=== PATIENT | male | born 1960 | race Caucasian/White ===

== ENCOUNTER 2024-08-01 02:57 | Emergency (ER) | payer MEDICARE, OTHER ==
--- NOTE | 2024-08-01 03:11 | ERPHSYRPT ---
- History of Present Illness Time Seen by Provider: 08/01/24 03:05 Source: patient, family Exam Limitations: no limitations Physician History: Pt had onset of back pain for a number of years and has increased pain in both feet now bringing him in tonight. pt states has had blockages in heart but denies stents but has pacer in place. He denies chest pain or sobreath , but we are checking the ekg bnp and trop due to the leg swelling and hx No recent trauma . No bowel or bladder symptoms. Chest clear Ht reg without M. Abd soft nontender without peritoneal signs. bilateral legs erythematous with edema. nurse has all 4 pulses good DP and PT bilateral feet. and I have good cap refill, but there is diffuse erythema both feet. He was taking elliquis but stopped - pt does not know why he was on it. midline spine nontender paraspinous muscle spasm. sensory and motor intact distally. ref symmetrical. Discussed with pt and available family risks and benefits of testing/Tx including CBC, CMP, EKG, Trop, BNP, UA, pain med toradol and dilaudid , benadryl, zofran, , CT abd, legs and feet, ESR, and they wish to proceed so these are ordered. Results discussed with pt and available family. Timing/Duration: week(s), intermittent, worse Method of Injury: prior injury Quality: burning, dull Back Pain Location: lumbar spine Back Pain Radiation: feet Severity of Pain-Max: moderate Severity of Pain-Current: moderate Modifying Factors: Improves With: immobilization, movement Associated Symptoms: denies symptoms Previous symptoms: same symptoms as today Allergies/Adverse Reactions: ibuprofen Allergy (Verified 08/01/24 03:21) Stomach Pain Home Medications: Acetaminophen 500 mg [Tylenol Extra Strength 500 mg] 500 mg PO Q6-8HPRN PRN 08/01/24 [History] Albuterol Sulfate [Proair Respiclick] 2 puffs IH Q6HPRN PRN 08/01/24 [History] Alendronate Sodium 70 mg [Fosamax 70 MG] 70 mg PO WEEKLY 08/01/24 [History] Amlodipine Besylate 5 mg [Norvasc 5 mg] 5 mg PO DAILY 08/01/24 [History] Atorvastatin Calcium 40 mg PO HS 08/01/24 [History] Baclofen 10 mg [Lioresal 10 mg] 20 mg PO TID 08/01/24 [History] Blood Sugar Diagnostic [True Metrix Glucose Test Strip] 1 applic DAILY 08/01/24 [History] Calcium/D3/Mag Ox/Market Risk Analyst/Rajiv/Zn [Caltrate 618-[id number]-Vmcnbjix Tab] 1 tab PO BID 08/01/24 [History] Clotrimazole/Betamethasone Dip [Clotrimazole-Betamethasone Lot] 30 ml TP DAILY 08/01/24 [History] Cyanocobalamin 100 Mcg [Vitamin B-12 100 Mcg] 100 mcg PO DAILY 08/01/24 [History] Empagliflozin [Jardiance] 10 mg PO DAILY 08/01/24 [History] Ferrous Sulfate 325 mg [Feosol 325 mg] 325 mg PO DAILY 08/01/24 [History] Fluticasone Furoate [Arnuity Ellipta] 1 spray IH DAILY PRN PRN 08/01/24 [History] Gabapentin 300 mg PO TID 08/01/24 [History] Hydrocodone/Acetaminophen [[place] 10-325 mg] 1 tab PO Q6HPRN PRN 08/01/24 [History] Lancets 1 applic DAILY 08/01/24 [History] Latanoprost/Pf [Iyuzeh 0.005% Eye Drop] 1 each OP HS 08/01/24 [History] Losartan Potassium 100 mg PO DAILY 08/01/24 [History] Miconazole Nitrate/Tolnaftate [Miconatate 2%-1% Kit] 1 applic TOP DAILY 08/01/24 [History] Pantoprazole 20 mg [Protonix 20MG Tablet] 20 mg PO BID 08/01/24 [History] Potassium Chloride 20 meq PO DAILY 08/01/24 [History] Timolol Maleate 0.5% Eye [Timoptic 0.5% 5 ml Ophthalmic] 1 drop OP HS 08/01/24 [History] Torsemide 20 mg [Demadex 20 mg] 20 mg PO UD 08/01/24 [History] - Review of Systems Constitutional: No Fever, No Chills Eyes: No Symptoms Ears, Nose, & Throat: No Symptoms Respiratory: No Cough, No Dyspnea Cardiac: No Chest Pain, No Edema, No Syncope Abdominal/Gastrointestinal: No Abdominal Pain, No Nausea, No Vomiting, No Mary rrhea Genitourinary Symptoms: No Dysuria Musculoskeletal: Back Pain, No Neck Pain Skin: No Symptoms, No Rash Neurological: No Dizziness, No Focal Weakness, No Sensory Changes Psychological: No Symptoms Endocrine: No Symptoms Hematologic/Lymphatic: No Symptoms Immunological/Allergic: No Symptoms All Other Systems: Reviewed and Negative - Past Medical History Pertinent Past Medical History: Yes Cardiac History: Coronary Artery Disease, Other (pacer) Endocrine Medical History: Diabetes Type II Musculoskeletal History: Degenerative Disk Disease, Fractures, Osteoarthritis - Nursing Vital Signs Nursing Vital Signs: Initial Vital Signs Temperature 97.5 F 08/01/24 02:59 Pulse Rate 84 08/01/24 02:59 Respiratory Rate 20 08/01/24 02:59 Blood Pressure 164/114 08/01/24 02:59 Pain Scale Pain Intensity 0 - Physical Exam General Appearance: no apparent distress, alert Eye Exam: PERRL/EOMI, eyes nml inspection Neck Exam: normal inspection, non-tender, supple, full range of motion, No meningismus, No midline tenderness Respiratory Exam: normal breath sounds, lungs clear, No respiratory distress Cardiovascular Exam: regular rate/rhythm, normal heart sounds Gastrointestinal Exam: soft, No tenderness, No mass Rectal Exam: deferred Extremity Exam: normal inspection, normal range of motion, No calf tenderness, No pedal edema Peripheral Pulses: carotid (R): 2+, carotid (L): 2+, femoral (R): 2+, femoral (L): 2+, dorsalis-pedis (R): 2+, dorsalis-pedis (L): 2+ Neurologic Exam: alert, oriented x 3, cooperative, 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 ) - Radiology Ultrasound Exam Venous Lower Extremity Ultrasound: negative (negative for DVTs bilaterally) Ordered Tests: Active Orders 24 hr Category Date Time Status EKG-ER Only STAT Care 08/01/24 03:13 Active IV Insertion STAT Care 08/01/24 03:13 Active ABDOMEN AND PELVIS W/0 CONTRAS [CT] Stat Exams 08/01/24 03:14 Completed LOWER EXTREMITY WO CONTRAST [CT] Stat Exams 08/01/24 03:21 Completed LOWER EXTREMITY WO CONTRAST [CT] Stat Exams 08/01/24 03:27 Completed LOWER EXTREMITY WO CONTRAST [CT] Stat Exams 08/01/24 03:40 Completed LOWER EXTREMITY WO CONTRAST [CT] Stat Exams 08/01/24 03:42 Completed VENOUS BILATERAL EXTREMITY [US] Stat Exams 08/01/24 03:16 Taken BNPII [NT PRO BNPII] Stat Lab 08/01/24 04:03 Completed CBC W DIFF Stat Lab 08/01/24 03:50 Completed CMP Stat Lab 08/01/24 03:50 Completed ESR [Erythrocyte Sedimentation Rate] Stat Lab 08/01/24 03:50 Completed LIPASE Stat Lab 08/01/24 03:50 Completed Lactic Acid Stat Lab 08/01/24 03:40 Completed TROPONIN Q4H Lab 08/01/24 03:50 Completed TROPONIN Q4H Lab 08/01/24 07:15 Ordered TROPONIN Q4H Lab 08/01/24 11:15 Ordered UA W/RFX UR CULTURE Stat Lab 08/01/24 03:14 Ordered Medication Summary Discontinued Medications Generic Name Dose Route Start Last Admin Trade Name Freq PRN Reason Stop Dose Admin Diphenhydramine HCl 25 mg 08/01/24 03:13 08/01/24 03:32 Diphenhydramine Hcl 50 Mg/Ml Vial IV 08/01/24 03:14 25 mg STAT ONE Administration Diphenhydramine HCl Confirm 08/01/24 03:30 Diphenhydramine Hcl 50 Mg/Ml Vial Administered 08/01/24 03:31 Dose 50 mg .ROUTE .STK-MED ONE Hydromorphone HCl 1 mg 08/01/24 03:13 08/01/24 03:33 Hydromorphone 1 Mg/1ml Inj IV 08/01/24 03:14 1 mg STAT ONE Administration Hydromorphone HCl Confirm 08/01/24 03:30 Hydromorphone 1 Mg/1ml Inj Administered 08/01/24 03:31 Dose 1 mg .ROUTE .STK-MED ONE Hydromorphone HCl 2 mg 08/01/24 04:29 08/01/24 04:37 Hydromorphone 1 Mg/1ml Inj IV 08/01/24 04:30 1 mg STAT ONE Administration Hydromorphone HCl Confirm 08/01/24 04:36 Hydromorphone 1 Mg/1ml Inj Administered 08/01/24 04:37 Dose 2 mg .ROUTE .STK-MED ONE Ceftriaxone Sodium 1 gm in 100 mls @ 200 mls/hr 08/01/24 03:18 08/01/24 04:05 Rocephin 1 Gm / 100 Ml Nacl IV 08/01/24 03:47 Infused STAT ONE Infusion Ceftriaxone Sodium Confirm 08/01/24 03:30 Rocephin 1 Gm / 100 Ml Nacl Administered 08/01/24 03:31 Dose 1 gm in 100 mls @ ud IV .STK-MED ONE Ketorolac Tromethamine 30 mg 08/01/24 03:13 08/01/24 03:33 Ketorolac Tromethamine 30 Mg/Ml Inj IV 08/01/24 03:14 30 mg STAT ONE Administration Ketorolac Tromethamine Confirm 08/01/24 03:30 Ketorolac Tromethamine 30 Mg/Ml Inj Administered 08/01/24 03:31 Dose 30 mg .ROUTE .STK-MED ONE Ondansetron HCl 4 mg 08/01/24 03:13 08/01/24 03:32 Ondansetron Hcl 4 Mg/2 Ml Vial IV 08/01/24 03:14 4 mg STAT ONE Administration Ondansetron HCl Confirm 08/01/24 03:30 Ondansetron Hcl 4 Mg/2 Ml Vial Administered 08/01/24 03:31 Dose 4 mg .ROUTE .STK-MED ONE Lab/Rad Data: Laboratory Result Diagrams 08/01/24 03:50 08/01/24 03:50 Laboratory Results 08/01/24 08/01/24 08/01/24 Range/Units 04:03 03:50 03:50 WBC (4.23-9.07) x10^3/uL RBC (4.63-6.08) x10^6/uL Hgb (13.7-17.5) g/dL Hct (40.1-51.0) % MCV (79.0-92.2) fL MCH (25.7-32.2) pg MCHC (32.3-36.5) g/dL RDW (11.6-14.4) % Plt Count (163-337) x10^3/uL MPV (9.4-12.4) fL Gran % (34.0-67.9) % Immature Gran % (Auto) (0.001-0.429) % Nucleat RBC Rel Count (0.00-0.2) % Eos # (Auto) (0.04-0.54) x10^3/uL Immature Gran # (Auto) (0.001-0.031) x10^3u/L Absolute Lymphs (auto) (1.32-3.57) x10^3/uL Absolute Monos (auto) (0.30-0.82) x10^3/uL Absolute Nucleated RBC (0.00-0.012) x10^3u/L Lymphocytes % (21.8-53.1) % Monocytes % (5.3-12.2) % Eosinophils % (0.8-7.0) % Basophils % (0.2-1.2) % Absolute Granulocytes (1.78-5.38) x10^3/uL Basophils # (0.01-0.08) x10^3/uL ESR 19 H (0-15) mm/hr Sodium (135-145) mmol/L Potassium (3.5-5.1) mmol/L Chloride (98-107) mmol/L Carbon Dioxide (22-30) mmol/L Anion Gap (5-15) MEQ/L BUN (9-20) mg/dL Creatinine (0.66-1.25) mg/dL Estimated GFR ML/MIN Glucose (74-106) mg/dL Lactic Acid (0.4-2.0) Calcium (8.4-10.2) mg/dL Total Bilirubin (0.2-1.3) mg/dL AST (17-59) U/L ALT (0-50) U/L Alkaline Phosphatase (38-126) U/L Troponin I (0.000-0.033) ng/mL NT-Pro-B Natriuret Pep 350 (<300) pg/mL Serum Total Protein (6.3-8.2) g/dL Albumin (3.5-5.0) g/dL Lipase (23-300) U/L Influenza Type A Ag NEGATIVE (NEGATIVE) Influenza Type B Ag NEGATIVE (NEGATIVE) RSV (PCR) NEGATIVE (NEGATIVE) SARS-CoV-2 (PCR) NEGATIVE (NEGATIVE) 08/01/24 08/01/24 08/01/24 Range/Units 03:50 03:50 03:50 WBC 7.3 (4.23-9.07) x10^3/uL RBC 5.11 (4.63-6.08) x10^6/uL Hgb 14.7 (13.7-17.5) g/dL Hct 45.7 (40.1-51.0) % MCV 89.4 (79.0-92.2) fL MCH 28.8 (25.7-32.2) pg MCHC 32.2 L (32.3-36.5) g/dL RDW 14.4 (11.6-14.4) % Plt Count 332 (163-337) x10^3/uL MPV 9.3 L (9.4-12.4) fL Gran % 61.0 (34.0-67.9) % Immature Gran % (Auto) 0.7 H (0.001-0.429) % Nucleat RBC Rel Count 0.0 (0.00-0.2) % Eos # (Auto) 0.16 (0.04-0.54) x10^3/uL Immature Gran # (Auto) 0.05 H (0.001-0.031) x10^3u/L Absolute Lymphs (auto) 1.91 (1.32-3.57) x10^3/uL Absolute Monos (auto) 0.61 (0.30-0.82) x10^3/uL Absolute Nucleated RBC 0.00 (0.00-0.012) x10^3u/L Lymphocytes % 26.2 (21.8-53.1) % Monocytes % 8.4 (5.3-12.2) % Eosinophils % 2.2 (0.8-7.0) % Basophils % 1.5 H (0.2-1.2) % Absolute Granulocytes 4.46 (1.78-5.38) x10^3/uL Basophils # 0.11 H (0.01-0.08) x10^3/uL ESR (0-15) mm/hr Sodium 137 (135-145) mmol/L Potassium 4.3 (3.5-5.1) mmol/L Chloride 105 (98-107) mmol/L Carbon Dioxide 26 (22-30) mmol/L Anion Gap 10.3 (5-15) MEQ/L BUN 12 (9-20) mg/dL Creatinine 0.55 L (0.66-1.25) mg/dL Estimated GFR 110.0 ML/MIN Glucose 92 (74-106) mg/dL Lactic Acid (0.4-2.0) Calcium 9.8 (8.4-10.2) mg/dL Total Bilirubin 0.60 (0.2-1.3) mg/dL AST 23 (17-59) U/L ALT 18 (0-50) U/L Alkaline Phosphatase 90 (38-126) U/L Troponin I < 0.012 (0.000-0.033) ng/mL NT-Pro-B Natriuret Pep (<300) pg/mL Serum Total Protein 6.6 (6.3-8.2) g/dL Albumin 4.1 (3.5-5.0) g/dL Lipase 24 (23-300) U/L Influenza Type A Ag (NEGATIVE) Influenza Type B Ag (NEGATIVE) RSV (PCR) (NEGATIVE) SARS-CoV-2 (PCR) (NEGATIVE) 08/01/24 Range/Units 03:40 WBC (4.23-9.07) x10^3/uL RBC (4.63-6.08) x10^6/uL Hgb (13.7-17.5) g/dL Hct (40.1-51.0) % MCV (79.0-92.2) fL MCH (25.7-32.2) pg MCHC (32.3-36.5) g/dL RDW (11.6-14.4) % Plt Count (163-337) x10^3/uL MPV (9.4-12.4) fL Gran % (34.0-67.9) % Immature Gran % (Auto) (0.001-0.429) % Nucleat RBC Rel Count (0.00-0.2) % Eos # (Auto) (0.04-0.54) x10^3/uL Immature Gran # (Auto) (0.001-0.031) x10^3u/L Absolute Lymphs (auto) (1.32-3.57) x10^3/uL Absolute Monos (auto) (0.30-0.82) x10^3/uL Absolute Nucleated RBC (0.00-0.012) x10^3u/L Lymphocytes % (21.8-53.1) % Monocytes % (5.3-12.2) % Eosinophils % (0.8-7.0) % Basophils % (0.2-1.2) % Absolute Granulocytes (1.78-5.38) x10^3/uL Basophils # (0.01-0.08) x10^3/uL ESR (0-15) mm/hr Sodium (135-145) mmol/L Potassium (3.5-5.1) mmol/L Chloride (98-107) mmol/L Carbon Dioxide (22-30) mmol/L Anion Gap (5-15) MEQ/L BUN (9-20) mg/dL Creatinine (0.66-1.25) mg/dL Estimated GFR ML/MIN Glucose (74-106) mg/dL Lactic Acid 1.1 (0.4-2.0) Calcium (8.4-10.2) mg/dL Total Bilirubin (0.2-1.3) mg/dL AST (17-59) U/L ALT (0-50) U/L Alkaline Phosphatase (38-126) U/L Troponin I (0.000-0.033) ng/mL NT-Pro-B Natriuret Pep (<300) pg/mL Serum Total Protein (6.3-8.2) g/dL Albumin (3.5-5.0) g/dL Lipase (23-300) U/L Influenza Type A Ag (NEGATIVE) Influenza Type B Ag (NEGATIVE) RSV (PCR) (NEGATIVE) SARS-CoV-2 (PCR) (NEGATIVE) - Progress Progress: improved, re-examined Progress Note: 08/01/24 04:29 pain only down from 9 to 7 so will give more pain meds. 08/01/24 05:17 pain got down to 6 and pt went to sleep. 08/01/24 06:58 pt is advised that there still could be undetected pathology evolving including cardiac, vascular infectious , neuro or other, but he prefers DC with outpt f/u rather than admission and furhter w/u in house and he has the capacity to make this choice. Counseled pt/family regarding: lab results, diagnosis, need for follow-up, rad results Medical Desision Making - Independent Historian Additional History obtained from: EMS - Discussion of managment Reviewed:: Test results, Need for additional workup Agreed on:: Treatment plan, need for follow-up - Diagnostic Testing Diagnostic test were ordered, analyzed, and reviewed by me: Yes Radiological Interpretation: Teleradiologist Report - Risk of complications The pt has a mod risk of morbidity or mortality based on: Need for prescription drug management The pt has a high risk of morbidity or mortality based on: Decision regarding hospitilization or escalation of hosp level of care - Departure Departure Disposition: Home Clinical Impression: Bilateral lower leg cellulitis, lumbar spine DDD, Adrenal adenoma Condition: Good Critical Care Time: No Referrals: Provider,Unknown [Primary Care Provider] - Follow up/PCP as directed Instructions: Low Back Pain (DC), Cellulitis (skin infection) in adults - Discharge instructions Additional Instructions: followup your blood pressure Back, and adrenal adenomas with your DrRoels as we discussed you have some infection in your legs and we are giving antibi otics at your pharmacy for this but it needs followup with your Drs. and so does your back since there could be additional conditions not detected yet but developing. Return meantime if not improving, increased pain, chest pain, shortness of breath, dizziness, increased swelling, increased redness or drainage, or any other symptoms of concern. Prescriptions: Smz/Tmp Ds Tablet [Bactrim Ds Tablet] 1 tab PO Q12H #20 tablet Cephalexin Mh 500 mg [Keflex 500 mg] 500 mg PO TID 7 Days #30 cap
[2024-08-01 03:20] VITALS: TEMP 97.5
[2024-08-01] MEDS ORDERED: ROCEPHIN 1 GM / 100 ML NaCl 1 GM/100 ML IVPB IV ONE (03:30)
[2024-08-01] MEDS ORDERED: TORAdol 30 mg Injection ONE (03:30)
[2024-08-01] MEDS ORDERED: Hydromorphone 1 mg/ml Injection ONE ×2 (03:30→04:36)
[2024-08-01] MEDS ORDERED: Zofran 4 MG/2 ML VIAL ONE (03:30)
[2024-08-01] MEDS ORDERED: BENADRYL 50 MG/ML ONE (03:30)
[2024-08-01] MEDS: BENADRYL 50 MG/ML IV ONE (03:32)
[2024-08-01] MEDS: Zofran 4 MG/2 ML VIAL IV ONE (03:32)
[2024-08-01] MEDS: Hydromorphone 1 mg/ml Injection IV ONE ×2 (03:33→04:37)
[2024-08-01] MEDS: TORAdol 30 mg Injection IV ONE (03:33)
[2024-08-01] MEDS: ROCEPHIN 1 GM / 100 ML NaCl 1 GM/100 ML IVPB IV ONE (03:34)
[2024-08-01 03:55] LABS: Absolute Neutrophil Ct (ANC) 4.46 x10^3/uL (1.78-5.38); BASOPHIL % 1.5 % (0.2-1.2); Basophil (Absolute #) 0.11 x10^3/uL (0.01-0.08); Eosinophil % 2.2 % (0.8-7.0); Eosinophil (Absolute #) 0.16 x10^3/uL (0.04-0.54); Hematocrit 45.7 % (40.1-51.0); Hemoglobin 14.7 g/dL (13.7-17.5); IMMATURE GRAN # 0.05 x10^3u/L (0.001-0.031); IMMATURE GRAN % 0.7 % (0.001-0.429); Lymphocyte (Absolute #) 1.91 x10^3/uL (1.32-3.57); Lymphocytes % 26.2 % (21.8-53.1); Mean Cell Volume 89.4 fL (79.0-92.2); Mean Corpuscular Hemoglobin 28.8 pg (25.7-32.2); Mean Corpuscular Hgb Concent. 32.2 g/dL (32.3-36.5); Mean Platelet Volume 9.3 fL (9.4-12.4); Monocyte (Absolute #) 0.61 x10^3/uL (0.30-0.82); Monocytes % 8.4 % (5.3-12.2); Platelet Count 332 x10^3/uL (163-337); Red Blood Count 5.11 x10^6/uL (4.63-6.08); Red Cell Distribution Width 14.4 % (11.6-14.4); White Blood Count 7.3 x10^3/uL (4.23-9.07)
[2024-08-01 04:07] LABS: ALBUMIN 4.1 g/dL (3.5-5.0); ANION GAP 10.3 MEQ/L (5-15); BILIRUBIN,TOTAL 0.6 mg/dL (0.2-1.3); Calcium 9.8 mg/dL (8.4-10.2); Creatinine 1 0.55 mg/dL (0.66-1.25); Potassium 4.3 mmol/L (3.5-5.1); Total Protein 6.6 g/dL (6.3-8.2)
[2024-08-01 04:29] LABS: INFLUENZA A NEGATIVE (NEGATIVE); INFLUENZA B NEGATIVE (NEGATIVE); RESPIRATORY SYNCTIAL VIRUS NEGATIVE (NEGATIVE); SARS-CoV-2 Xpert Express NEGATIVE (NEGATIVE)
--- NOTE | 2024-08-01 05:17 | XRAY ---
CLINICAL HISTORY: back/ abd pain COMPARISON: No prior studies are available for comparison. TECHNIQUE: Non-contrast CT of the abdomen and pelvis was performed, with the following protocol: axial images, and reconstructed coronal and sagittal images. One of the following dose reduction techniques was utilized for this exam: Automated exposure control, adjustment of the mA and/or kV according to patient size, and use of iterative reconstruction. CTDI: 22.77 mGy. DLP: 1245.79 mGY.cm. FINDINGS: Abdomen: Liver: Normal in size, shape, and density. No focal lesions, cysts, or masses were identified within the limitation of a non-contrast study. Gallbladder and Biliary System: Cholecystectomy clips. No intrahepatic biliary ductal dilatation. CBD is prominent measuring 11 mm, likely postcholecystectomy changes. Pancreas: Diffuse fatty atrophy of the pancreas is seen, more in the head and uncinate process. No pancreatic masses or calcifications were noted. Spleen: Normal in size, shape, and density. Multiple, scattered calcified nodules are seen in the spleen, likely old healed granulomas. A small accessory spleen is seen near the splenic hilum. Appendix: The appendix is normal in size without stephanie appendiceal fat stranding and without an appendicolith. No evidence of appendiceal abscess or perforation. Kidneys and Adrenal Glands: Both kidneys are normal in size, shape, and position. Bilateral a few tiny parapelvic cysts are noted. Cortical thickness is within normal limits. No renal calculi or hydronephrosis. Bilateral adrenal adenomas are seen, measuring 2.4 x 2 cm on right and 5 x 3.6 cm on the left. Abdominal Aorta and Vessels: The abdominal aorta and major branches are patent without evidence of an aneurysm or significant atherosclerosis. Pelvis: Metallic streak artifacts from right total hip replacement are obscuring the fine details of the pelvis. Within the limitation of the artifacts, urinary bladder, prostate, and seminal vesicles appear unremarkable. Peritoneal and Retroperitoneal Structures: No free fluid or abnormal fluid collections were identified within the abdomen or pelvis. No lymphadenopathy was noted. Bowel: The visualized bowel loops are normal in caliber and appearance. No evidence of bowel obstruction or wall thickening. Non-complicated colonic diverticulosis. A large sliding hernia is noted with an intercrural distance of 3 cm and herniation of gastric fundus into the posterior mediastinum with changes of bariatric surgery. Bones and Soft Tissues: Multilevel lumbar and lower thoracic spondylotic changes with scoliotic deformity having convexity towards left, partial collapsed L5, and T11 vertebral bodies with generalized osteopenia, multilevel Schmorl's nodes, degenerative intervertebral disc reduction, vacuum phenomena, and osteophyte formation. Visualized lung bases show cardiac pacemaker leads. IMPRESSION: 1. Bilateral adrenal nodules and masses likely adenomas, measuring 2.4 x 2 cm on right and 5 x 3.6 cm on the left. 2. Non-complicated colonic diverticulosis. 3. A sliding hernia with an intercrural distance of 3 cm and herniation of gastric fundus into the posterior mediastinum with changes of bariatric surgery. 4. A few bilateral, small parapelvic renal cysts. 5. No renal calculi or hydronephroureter 6. Levoscoliotic deformity with degenerative changes and partial collapsed L5, and T11 vertebral bodies as per given in history. 7. CBD is prominent measuring 11 mm, likely postcholecystectomy changes. 8. No significant acute findings. Electronically Signed by: Iliana Cruz MD. (08/01/2024 05:12:34 EST)
--- NOTE | 2024-08-01 06:04 | XRAY ---
CLINICAL HISTORY: looking for osteomyletis COMPARISON: No previous studies are available for comparison. TECHNIQUE: A CT scan of the right lower extremity was performed without the administration of intravenous contrast. Axial images were obtained, with coronal and sagittal reformatted images reviewed. One of the following dose-reduction techniques was utilized for this exam. Automated exposure control, adjustment of the mA and/or kV according to patient size, and use of iterative reconstruction. CTDI: 28.07 mGy. DLP: 1556.9 mGy.cm. FINDINGS: Bones: The bony structures are intact with no evidence of acute fracture or dislocation. There is no evidence of lytic or sclerotic lesions. Generalized osteopenia with trabeculated bone pattern Joints: Right total knee replacement surgery is seen in the metallic prosthesis in situ. No evidence of loosening or migration. Ankle joint is intact. Degenerative changes of right foot with reduced joint space, and osteophyte formation. Soft Tissues: Diffuse soft tissue swelling of the foot is seen with subcutaneous edema and mild skin thickening. No abnormal calcification, masses, or collection. Additional Findings: There is no significant periosteal reaction or signs to suggest acute osteomyelitis. Atherosclerotic vascular calcifications. Calcific tendinosis/enthesopathy of the distal Achilles tendon is seen. IMPRESSION: 1. Generalized osteopenia of right lower leg bones with trabeculated bone pattern 2. No evidence of acute fracture, dislocation 3. Right total knee replacement surgery is seen in the metallic prosthesis in situ. No evidence of loosening or migration. 4. Degenerative changes of right foot with reduced joint space, and osteophyte formation. 5. Calcific tendinosis/enthesopathy of the distal Achilles tendon is seen. 6. Diffuse soft tissue swelling of the right foot with subcutaneous edema and mild skin thickening. Findings may suggest cellulitis however further evaluation of deep veins of the leg can be recommended to rule out other causes 7. No significant periosteal reaction or signs to suggest acute osteomyelitis. Electronically Signed by: Iliana Cruz MD. (08/01/2024 05:59:44 EST)
--- NOTE | 2024-08-01 06:06 | XRAY ---
CLINICAL HISTORY: RED, SWELLING COMPARISON: No previous studies are available for comparison. TECHNIQUE: CT scan of the left foot was performed without the administration of intravenous contrast. Axial images were obtained, with coronal and sagittal reformatted images reviewed. One of the following dose reduction techniques was utilized for this exam. Automated exposure control, adjustment of the mA and/or kV according to patient size, and use of iterative reconstruction. FINDINGS: Bones: The bony structures are intact with no evidence of acute fracture or dislocation. There is no evidence of lytic or sclerotic lesions. Generalized osteopenia with trabeculated bone pattern Joints: There are degenerative changes with reduced joint spaces and bony proliferation suggestive of osteophyte formation are noted. No evidence of joint effusion, subluxation Soft Tissues: Diffuse soft tissue swelling of the foot is seen with subcutaneous edema and mild skin thickening. No abnormal calcification, masses or collection. Additional Findings: Posterior and plantar calcaneal spurs. There is no significant periosteal reaction or signs to suggest acute osteomyelitis. IMPRESSION: 1. Generalized osteopenia of left foot bones with trabeculated bone pattern 2. No evidence of acute fracture, dislocation 3. Degenerative changes of left foot joints with reduced joint spaces and bony proliferation/osteophyte formation 4. Diffuse soft tissue swelling of the foot with subcutaneous edema and mild skin thickening. Findings may suggest cellulitis however further evaluation of deep veins of the leg can be recommended to rule out other causes 5. Posterior and plantar calcaneal spurs. 6. No significant periosteal reaction or signs to suggest acute osteomyelitis. Electronically Signed by: Iliana Cruz MD. (08/01/2024 06:00:56 EST)
--- NOTE | 2024-08-01 06:08 | XRAY ---
CLINICAL HISTORY: RED, SWELLING COMPARISON: No previous studies are available for comparison. TECHNIQUE: CT scan of the [specify extremity and side, e.g., right foot was performed without the administration of intravenous contrast. Axial images were obtained, with coronal and sagittal reformatted images reviewed. One of the following dose reduction techniques was utilized for this exam. Automated exposure control, adjustment of the mA and/or kV according to patient size, and use of iterative reconstruction. FINDINGS: Bones: The bony structures are intact with no evidence of acute fracture or dislocation. There is no evidence of lytic or sclerotic lesions. Generalized osteopenia with trabeculated bone pattern Joints: Ankle joint is intact. Degenerative changes of right foot with reduced joint space, and osteophyte formation. Soft Tissues: Diffuse soft tissue swelling of the foot is seen with subcutaneous edema and mild skin thickening. No abnormal calcification, masses or collection. Additional Findings: There is no significant periosteal reaction or signs to suggest acute osteomyelitis. Atherosclerotic vascular calcifications. Calcific tendinosis/enthesopathy of the distal Achilles tendon is seen. Calcaneal spurs are seen. Calcified tendinopathy of other foot tendons. IMPRESSION: 1. Generalized osteopenia of right foot bones with trabeculated bone pattern 2. No evidence of acute fracture, dislocation 3. Degenerative changes of right foot with reduced joint space, and osteophyte formation. 4. Calcific tendinosis/enthesopathy of the distal Achilles tendon is seen. 5. Diffuse soft tissue swelling of the right foot with subcutaneous edema and mild skin thickening. Findings may suggest cellulitis however further evaluation of deep veins of the leg can be recommended to rule out other causes 6. Calcaneal spurs 7. No significant periosteal reaction or signs to suggest acute osteomyelitis. Electronically Signed by: Iliana Cruz MD. (08/01/2024 06:04:03 EST)
--- NOTE | 2024-08-01 06:50 | XRAY ---
CLINICAL HISTORY: redness looking for osteo COMPARISON: No previous studies are available for comparison. TECHNIQUE: A CT scan of the left lower extremity was performed without the administration of intravenous contrast. Axial images were obtained, with coronal and sagittal reformatted images reviewed. One of the following dose reduction techniques was utilized for this exam. Automated exposure control, adjustment of the mA and/or kV according to patient size, and use of iterative reconstruction. DLP: 1513.07 mGy-cm, CTDI: 28.07 mGy. FINDINGS: Bones: The bony structures are intact with no evidence of acute fracture or dislocation. There is no evidence of lytic or sclerotic lesions. Osteopenic bones with trabecular bone pattern. Possible proximal tibial old fracture with callus formation. Joints: Changes of left total knee replacement were seen with metallic prosthesis in place without evidence of loosening or migration. The ankle joint is intact. No joint effusion or subluxation. Degenerative changes of the foot joints with reduced joint spaces and bony proliferation/osteophyte formation. Soft Tissues: There is diffuse soft tissue swelling of the foot with subcutaneous edema and skin thickening. No mass/collection, or foreign body. Additional Findings: Calcific tendinosis/enthesopathy of the Achilles tendon. No significant periosteal reaction or signs of acute osteomyelitis. Calcaneal spurs. Few scattered soft tissue calcifications are seen in the nguyễn region. No significant periosteal reaction or CT signs of acute osteomyelitis. IMPRESSION: 1. Osteopenic bones with trabecular bone pattern. 2. Left total knee replacement with metallic prosthesis in place without evidence of loosening or migration. 3. Degenerative changes of the foot joints with reduced joint spaces and bony proliferation/osteophyte formation. 4. Diffuse soft tissue swelling of the foot with subcutaneous edema and skin thickening. The cause can be cellulitis however further evaluation with venous ultrasound can be recommended if clinically warranted to rule out other causes and to assess the deep veins. 5. Calcific tendinosis/enthesopathy of the Achilles tendon. 6. No significant periosteal reaction or CT signs of acute osteomyelitis. 7. Possible proximal tibial old fracture with callus formation. Electronically Signed by: Iliana Cruz MD. (08/01/2024 06:45:09 EST)
[2024-08-01 07:32] VITALS: BP 133/95; PULSE 66; RESP 15; O2SAT 94
--- NOTE | 2024-08-01 08:30 | XRAY ---
Indication: Bilateral erythema and swelling. Two-dimensional sonogram and color Doppler imaging major venous vessels left and right leg performed. Comparison: None No thrombus seen in the examined deep venous vessels left and right leg including greater saphenous vein. Veins demonstrate normal compressibility. Venous waveforms are normal with and without augmentation. Impression: Left and right legs negative for DVT. Comment: Preliminary report was given.
== END 2024-08-01 07:34 | disposition home or self-care (01) ==
LOC: ED 02:57
DX: L03.116 Cellulitis of left lower limb (principal); L03.115 Cellulitis of right lower limb; M51.369 Other intervertebral disc degeneration, lumbar region without mention of lumbar back pain or lower extremity pain; D35.00 Benign neoplasm of unspecified adrenal gland; M79.671 Pain in right foot; M79.672 Pain in left foot; E11.9 Type 2 diabetes mellitus without complications; Z79.84 Long term (current) use of oral hypoglycemic drugs; Z79.891 Long term (current) use of opiate analgesic; Z79.899 Other long term (current) drug therapy
CPT/HCPCS: 0241U; 36415; 73700; 74176; 80053; 83605; 83690; 83880; 84484; 85025; 85652; 93005; 93970; 96374; 96375; 99285; 99284; J0696; J1171; J1200; J1885; J2405

== ENCOUNTER 2024-08-25 14:30 | Emergency (ER) | payer MEDICARE, OTHER ==
--- NOTE | 2024-08-25 14:37 | ERPHSYRPT ---
- History of Present Illness Time Seen by Provider: 08/25/24 14:37 Source: patient Exam Limitations: no limitations Physician History: This is a morbidly obese 64-year-old white male patient who arrived by private vehicle with the complaint of low back pain. Patient has a history of chronic low back pain. He was seen in our emergency department on 08/01/2024 and had an extensive workup. Since that time, approximately 3 to 4 days ago, patient fell onto his lower back and tailbone area. He has only been taking Tylenol for the pain and this does not appear to be helping per his report. He has no urinary or bowel incontinence. Patient has a history of chronic low back pain for years. He has a history of osteoarthritis, morbid obesity, hypertension, gastroesophageal reflux disease, type 2 diabetes, degenerative disc disease, and coronary artery disease. Patient states that he was brought to the emergency department by a friend and that friend will also pick him up if/when he is discharged from the emergency department. Timing/Duration: day(s) Method of Injury: fall (3 to 4 days) Quality: aching Back Pain Location: lumbar spine, coccyx Severity of Pain-Max: moderate Severity of Pain-Current: moderate Modifying Factors: Improves With: movement Associated Symptoms: lower back pain, muscle spasms, No urinary incontinence, No loss of bowel control, No constipation, No problems urinating, No light- headedness, No dizziness, No numbness in legs/feet, No tingling in legs/feet Previous symptoms: same symptoms as today, recently seen, recently treated Allergies/Adverse Reactions: ibuprofen Allergy (Verified 08/25/24 14:40) Stomach Pain Home Medications: Acetaminophen 500 mg [Tylenol Extra Strength 500 mg] 500 mg PO Q6-8HPRN PRN 08/01/24 [History] Albuterol Sulfate [Proair Respiclick] 2 puffs IH Q6HPRN PRN 08/01/24 [History] Alendronate Sodium 70 mg [Fosamax 70 MG] 70 mg PO WEEKLY 08/01/24 [History] Amlodipine Besylate 5 mg [Norvasc 5 mg] 5 mg PO DAILY 08/01/24 [History] Atorvastatin Calcium 40 mg PO HS 08/01/24 [History] Baclofen 10 mg [Lioresal 10 mg] 20 mg PO TID 08/01/24 [History] Blood Sugar Diagnostic [True Metrix Glucose Test Strip] 1 applic DAILY 08/01/24 [History] Calcium/D3/Mag Ox/Ophthalmic Surgical Assistant/Rajiv/Zn [Caltrate 410-Y2-Yrvmyilp Tab] 1 tab PO BID 08/01/24 [History] Clotrimazole/Betamethasone Dip [Clotrimazole-Betamethasone Lot] 30 ml TP DAILY 08/01/24 [History] Cyanocobalamin 100 Mcg [Vitamin B-12 100 Mcg] 100 mcg PO DAILY 08/01/24 [History] Empagliflozin [Jardiance] 10 mg PO DAILY 08/01/24 [History] Ferrous Sulfate 325 mg [Feosol 325 mg] 325 mg PO DAILY 08/01/24 [History] Fluticasone Furoate [Arnuity Ellipta] 1 spray IH DAILY PRN PRN 08/01/24 [History] Gabapentin 300 mg PO TID 08/01/24 [History] Hydrocodone/Acetaminophen [Horton 10-325 mg] 1 tab PO Q6HPRN PRN 08/01/24 [History] Lancets 1 applic DAILY 08/01/24 [History] Latanoprost/Pf [Iyuzeh 0.005% Eye Drop] 1 each OP HS 08/01/24 [History] Losartan Potassium 100 mg PO DAILY 08/01/24 [History] Miconazole Nitrate/Tolnaftate [Miconatate 2%-1% Kit] 1 applic TOP DAILY 08/01/24 [History] Pantoprazole 20 mg [Protonix 20MG Tablet] 20 mg PO BID 08/01/24 [History] Potassium Chloride 20 meq PO DAILY 08/01/24 [History] Timolol Maleate 0.5% Eye [Timoptic 0.5% 5 ml Ophthalmic] 1 drop OP HS 08/01/24 [History] Torsemide 20 mg [Demadex 20 mg] 20 mg PO UD 08/01/24 [History] Hx Tetanus, Diphtheria Vaccination/Date Given: No Hx Influenza Vaccination/Date Given: Yes Hx Pneumococcal Vaccination/Date Given: No Travel Risk - International Travel Have you traveled outside of the country in past 3 weeks: No - Emerging Infectious Disease Are you exhibiting symptoms associated with any current EIDs: No - Review of Systems Constitutional: No Symptoms Eyes: No Symptoms Ears, Nose, & Throat: No Symptoms Respiratory: No Symptoms Cardiac: No Symptoms Abdominal/Gastrointestinal: No Symptoms Genitourinary Symptoms: No Symptoms Musculoskeletal: Back Pain (Lumbar region), Fall Skin: No Symptoms Neurological: No Symptoms Psychological: No Symptoms Endocrine: No Symptoms Hematologic/Lymphatic: No Symptoms Immunological/Allergic: No Symptoms All Other Systems: Reviewed and Negative - Past Medical History Pertinent Past Medical History: Yes Cardiac History: Coronary Artery Disease, Other (pacer) Endocrine Medical History: Diabetes Type II Musculoskeletal History: Degenerative Disk Disease, Fractures, Osteoarthritis - Past Surgical History Past Surgical History: Yes Cardiac: Pacemaker Gastrointestinal: Cholecystectomy, Hemorrhoidectomy Musculoskeletal: Joint Replacement Other Surgical History: gastric bypass, bilat. knee replacement, bone spur, carpal tunnel repair on left hand, - Social History Smoking Status: Never smoker Exposure to second hand smoke: No Drug Use: marijuana - Social Determinants of Health Will the patient participate in the screening: Yes Do you worry about a steady place to live?: No In the past 12 months,have you had to go without utilities?: No Transportation Issues: No Has anyone in your support network made you feel unsafe?: No Have you or anyone in your house had to go w/o enough food: No - Nursing Vital Signs Nursing Vital Signs: Initial Vital Signs Blood Pressure 113/72 08/25/24 14:38 O2 Sat by Pulse Oximetry 95 08/25/24 14:38 Pain Scale Pain Intensity 8 - Physical Exam General Appearance: no apparent distress, alert, anxiety, obese Eye Exam: PERRL/EOMI, eyes nml inspection Ears, Nose, Throat Exam: normal ENT inspection, moist mucous membranes Neck Exam: normal inspection, non-tender, supple, full range of motion Respiratory Exam: respiratory distress, No chest tenderness, No airway intact Gastrointestinal Exam: No tenderness Rectal Exam: not done Back Exam: normal inspection, decreased range of motion, muscle spasm, No CVA tenderness, No vertebral tenderness (No vertebral tenderness to palpation), No point tenderness (No point tenderness to palpation) Extremity Exam: normal inspection, normal range of motion, pelvis stable, other Neurologic Exam: alert, oriented x 3, cooperative, boat wrapper II-XII nml as tested, normal mood/affect, sensation nml Skin Exam: normal color, warm, dry Lymphatic Exam: No adenopathy SpO2 Interpretation: normal O2 Delivery: Room Air - Course Nursing assessment & vital signs reviewed: Yes Ordered Tests: Active Orders 24 hr Category Date Time Status LUMBAR LIMITED (2 OR 3 VIEWS) Stat Exams 08/25/24 14:53 Completed SACRUM AND COCCYX Stat Exams 08/25/24 14:54 Completed - Progress Progress: improved, pain not gone completely Progress Note: 08/25/24 15:20 My medical decision making in the assignment of low complexity to this patient's medical issue today is based on review of the patient's past medical history, reviewed the patient's medication list, reviewed patient drug allergy list, history present illness and physical findings on examination. The workup in this patient includes lumbar spine x-rays and x-ray of the sacrum/coccyx. Differential diagnosis includes but is not limited to contusion of sacrum and coccyx, fracture of sacrum and coccyx, low back strain, acute fracture/subluxation lumbar spine, acute exacerbation of chronic low back pain 08/25/24 16:36 The sacrum/coccyx x-ray was interpreted by the radiologist and I reviewed the impression. The impression states no acute fracture or dislocation present. Lumbar spine x-ray was interpreted by the radiologist and I reviewed the impression. The impression states multi level degenerative spondylosis. No acute fracture or subluxation. Counseled pt/family regarding: diagnosis, need for follow-up, rad results Medical Desision Making - Diagnostic Testing Diagnostic test were ordered, analyzed, and reviewed by me: Yes Radiological Interpretation: Reviewed by me, Teleradiologist Report - Risk of complications Low Risk: Low risk of morbidity from additional dx testing or treatment - Departure Departure Disposition: Home Clinical Impression: Fall with no significant injury, Acute on chronic low back pain Condition: Stable Critical Care Time: No Referrals: WILDER DALTON [Primary Care Provider] - Follow up/PCP as directed Additional Instructions: Take your medications as prescribed. Call your prescribing provider and/or pain specialist tomorrow, 08/26/2024, to make arranges for follow-up appointment for further evaluation management. Monitor your blood sugar closely while taking the steroids. Prescriptions: Prednisone 10 mg [Deltasone 10 mg] 10 mg PO TID #12 tablet Orphenadrine Citrate 100 mg [Norflex 100 MG Tablet] 100 mg PO BID #10 tab
[2024-08-25 14:48] VITALS: TEMP 97.7
--- NOTE | 2024-08-25 16:23 | XRAY ---
Indication: Pain following fall 3 days ago. Comparison: None 3 view sacrum/coccyx demonstrates osteopenia, moderate lower lumbar degenerative spondylosis, 1 cm S2 bone island, and incompletely visualized right total hip arthroplasty. No acute bony, articular, or soft tissue abnormalities.
--- NOTE | 2024-08-25 16:25 | XRAY ---
Indication: Pain following fall 3 days ago. Comparison: None 3 view lumbar spine demonstrates 5 lumbar segments with osteopenia, marked levorotoscoliosis centered at L2, moderate/advanced multilevel degenerative spondylosis greatest at L4-S1, 1 cm S2 bone island, incompletely visualized right total hip arthroplasty, tiny splenic calcified granulomas, and cholecystectomy clips. No acute bony, articular, or soft tissue abnormalities.
[2024-08-25] MEDS ORDERED: ZOFRAN ODT 4 MG ONE (16:49)
[2024-08-25] MEDS ORDERED: Norflex 60 MG/2 ML ONE (16:49)
[2024-08-25] MEDS ORDERED: Hydromorphone 1 mg/ml Injection ONE (16:50)
[2024-08-25] MEDS: ZOFRAN ODT 4 MG PO ONE (16:54)
[2024-08-25] MEDS: Norflex 60 MG/2 ML IM ONE (16:55)
[2024-08-25] MEDS: Hydromorphone 1 mg/ml Injection IM ONE (16:59)
[2024-08-25 17:05] VITALS: BP 146/66; PULSE 72; RESP 18; O2SAT 97
== END 2024-08-25 17:26 | disposition home or self-care (01) ==
LOC: ED 14:30
DX: G89.29 Other chronic pain (principal); M54.50 Low back pain, unspecified; W19.XXXA Unspecified fall, initial encounter; I10 Essential (primary) hypertension; E11.9 Type 2 diabetes mellitus without complications; Z79.52 Long term (current) use of systemic steroids; Z79.84 Long term (current) use of oral hypoglycemic drugs; Z79.899 Other long term (current) drug therapy
CPT/HCPCS: 72100; 72220; 96372; 99283; 99284; J1171; J2360; Q0162

== ENCOUNTER 2024-11-10 10:16 | Day surgery (SDC) | payer MEDICARE, OTHER ==
[2024-11-10] MEDS ORDERED: methylPREDNISolone acetate IM ONE (10:17)
[2024-11-10] MEDS ORDERED: LIDOCAINE HCL 2% 100 MG/5 ML IJ ONE (10:17)
[2024-11-10] MEDS ORDERED: propofoL IV ONE (13:27)
[2024-11-10] MEDS ORDERED: Versed 2 MG/2 ML Injection ONE (13:34)
[2024-11-10] MEDS ORDERED: DEXMEDETOMIDINE 80 MCG/20ML-NS IV ONE (13:34)
[2024-11-10] MEDS ORDERED: Lactated Ringers 1,000 ML IV ONE (16:35)
--- NOTE | 2024-11-10 20:58 | XRAY ---
Indication: Bilateral L4-S1 MBB. Intraoperative fluoroscopy provided for 19 seconds. Single digital spot image submitted for interpretation demonstrates posterior needle tips projecting over expected left and right L4-S1 nerve roots. Correlate with intraoperative findings/report.
--- NOTE | 2024-11-10 21:23 | XRAY ---
19 seconds of fluoroscopy was used in surgery for a bilateral L4-S1 MBB.
== END 2024-11-10 14:08 | disposition home or self-care (01) ==
LOC: SDC-PAIN 10:16
PROVIDERS: ATTEND Psychiatry & Neurology Pain Medicine
DX: M47.817 Spondylosis without myelopathy or radiculopathy, lumbosacral region (principal); E11.9 Type 2 diabetes mellitus without complications
CPT/HCPCS: 64493; 64494; 72020; 82947; J1010; J2250; J2704

== ENCOUNTER 2024-11-11 21:43 | Emergency (ER) | payer MEDICARE, OTHER ==
[2024-11-11 22:02] VITALS: TEMP 97.9
[2024-11-11 22:32] LABS: Basophil (Absolute #) 0.07 x10^3/uL (0.01-0.08); Eosinophil % 1.2 % (0.8-7.0); Eosinophil (Absolute #) 0.09 x10^3/uL (0.04-0.54); Hematocrit 41.9 % (40.1-51.0); Hemoglobin 13.7 g/dL (13.7-17.5); IMMATURE GRAN # 0.01 x10^3u/L (0.001-0.031); IMMATURE GRAN % 0.1 % (0.001-0.429); Lymphocyte (Absolute #) 1.19 x10^3/uL (1.32-3.57); Lymphocytes % 16.3 % (21.8-53.1); Mean Cell Volume 92.1 fL (79.0-92.2); Mean Corpuscular Hemoglobin 30.1 pg (25.7-32.2); Mean Corpuscular Hgb Concent. 32.7 g/dL (32.3-36.5); Mean Platelet Volume 10.3 fL (9.4-12.4); Monocyte (Absolute #) 0.72 x10^3/uL (0.30-0.82); Monocytes % 9.9 % (5.3-12.2); Neutrophil % 71.5 % (34.0-67.9); Platelet Count 272 x10^3/uL (163-337); Red Blood Count 4.55 x10^6/uL (4.63-6.08); Red Cell Distribution Width 13.6 % (11.6-14.4); White Blood Count 7.3 x10^3/uL (4.23-9.07)
[2024-11-11] MEDS ORDERED: Zofran 4 MG/2 ML VIAL ONE (22:32)
[2024-11-11] MEDS ORDERED: MORPHINE SULFATE 4 MG INJ ONE (22:32)
[2024-11-11] MEDS: MORPHINE SULFATE 4 MG INJ IV ONE (22:34)
[2024-11-11] MEDS: Zofran 4 MG/2 ML VIAL IV ONE (22:34)
[2024-11-11 22:57] LABS: ALBUMIN 4.3 g/dL (3.5-5.0); BILIRUBIN,TOTAL 0.4 mg/dL (0.2-1.3); Calcium 9.4 mg/dL (8.4-10.2); Creatinine 1 1.07 mg/dL (0.66-1.25); MAGNESIUM 2.3 mg/dL (1.6-2.3); Potassium 3.7 mmol/L (3.5-5.1); Total Protein 6.5 g/dL (6.3-8.2)
[2024-11-11 23:10] VITALS: O2SAT 96
[2024-11-12] MEDS: KEFLEX 500 MG PO ONE (00:03)
[2024-11-12] MEDS ORDERED: KEFLEX 500 MG ONE (00:03)
[2024-11-12 00:05] VITALS: BP 133/63; PULSE 72; RESP 16
--- NOTE | 2024-11-12 00:20 | ERPHSYRPT ---
- History of Present Illness Time Seen by Provider: 11/11/24 21:46 Source: patient Exam Limitations: no limitations Patient Subjective Stated Complaint: pt states that his legs have began to swell the past couple days. pt states "I think I have cellulitis again." Triage Nursing Assessment: pt came into the er via ambulance; pt ambulated to cot per self; pt is axo x4; c/o swelling; pt states 10/10 pain to BLE; BLE tight, shiny, reddned to keisha lower legs; warmth present in BLE; weak keisha pedal pulses; vitals wnl; no respiratory distress present Physician History: 64-year-old male with multiple medical problems including coronary artery disease, congestive heart failure with pacemaker placement, hypertension, chronic back pain and lower extremity swelling presented in the ER with increased lower extremity swelling with moderate intensity sharp shooting pain for the last couple of days with some redness on both lower legs. Patient reports he has been taking torsemide as recommended. Denies any chest pain palpitations or shortness of breath. No fever or chills reported. Patient had back injections done earlier today and is feeling better. Allergies/Adverse Reactions: adhesive tape Allergy (Verified 11/11/24 21:45) Hives ibuprofen Allergy (Verified 08/25/24 14:40) Stomach Pain Home Medications: Acetaminophen 500 mg [Tylenol Extra Strength 500 mg] 500 mg PO Q6-8HPRN PRN 08/01/24 [History] Albuterol Sulfate [Proair Respiclick] 2 puffs IH Q6HPRN PRN 08/01/24 [History] Alendronate Sodium 70 mg [Fosamax 70 MG] 70 mg PO WEEKLY 08/01/24 [History] Amlodipine Besylate 5 mg [Norvasc 5 mg] 5 mg PO DAILY 08/01/24 [History] Atorvastatin Calcium 40 mg PO HS 08/01/24 [History] Baclofen 10 mg [Lioresal 10 mg] 20 mg PO TID 08/01/24 [History] Blood Sugar Diagnostic [True Metrix Glucose Test Strip] 1 applic DAILY 08/01/24 [History] Calcium/D3/Mag Ox/Calciner Operator Helper/Rajiv/Zn [Caltrate 394-M0-Vmjnznoz Tab] 1 tab PO BID 08/01/24 [History] Clotrimazole/Betamethasone Dip [Clotrimazole-Betamethasone Lot] 30 ml TP DAILY 08/01/24 [History] Cyanocobalamin 100 Mcg [Vitamin B-12 100 Mcg] 100 mcg PO DAILY 08/01/24 [History] Empagliflozin [Jardiance] 10 mg PO DAILY 08/01/24 [History] Ferrous Sulfate 325 mg [Feosol 325 mg] 325 mg PO DAILY 08/01/24 [History] Fluticasone Furoate [Arnuity Ellipta] 1 spray IH DAILY PRN PRN 08/01/24 [History] Gabapentin 300 mg PO TID 08/01/24 [History] Hydrocodone/Acetaminophen [[place] 10-325 mg] 1 tab PO Q6HPRN PRN 08/01/24 [History] Lancets 1 applic DAILY 08/01/24 [History] Latanoprost/Pf [Iyuzeh 0.005% Eye Drop] 1 each OP HS 08/01/24 [History] Losartan Potassium 100 mg PO DAILY 08/01/24 [History] Miconazole Nitrate/Tolnaftate [Miconatate 2%-1% Kit] 1 applic TOP DAILY 08/01/24 [History] Pantoprazole 20 mg [Protonix 20MG Tablet] 20 mg PO BID 08/01/24 [History] Potassium Chloride 20 meq PO DAILY 08/01/24 [History] Timolol Maleate 0.5% Eye [Timoptic 0.5% 5 ml Ophthalmic] 1 drop OP HS 08/01/24 [History] Torsemide 20 mg [Demadex 20 mg] 20 mg PO UD 08/01/24 [History] Hx Tetanus, Diphtheria Vaccination/Date Given: No Hx Influenza Vaccination/Date Given: Yes Hx Pneumococcal Vaccination/Date Given: Yes Travel Risk - International Travel Have you traveled outside of the country in past 3 weeks: No - Emerging Infectious Disease Are you exhibiting symptoms associated with any current EIDs: No - Review of Systems Constitutional: No Symptoms Eyes: No Symptoms Ears, Nose, & Throat: No Symptoms Respiratory: No Symptoms Cardiac: No Symptoms Abdominal/Gastrointestinal: No Symptoms Musculoskeletal: Arthralgias, Back Pain Skin: Cellulitis, Induration Neurological: No Symptoms Endocrine: No Symptoms Hematologic/Lymphatic: No Symptoms - Past Medical History Pertinent Past Medical History: Yes Neurological History: Peripheral Neuropathy ENT History: Glaucoma Cardiac History: Coronary Artery Disease, Other Respiratory History: Asthma, CHF, COPD, Sleep Apnea Endocrine Medical History: Diabetes Type II Musculoskeletal History: Degenerative Disk Disease, Fractures, Osteoarthritis GI Medical History: Hemorrhoids, Other Psycho-Social History: No Pertinent History Other Medical History: vertebra fracture (L5) - Past Surgical History Past Surgical History: Yes Cardiac: Pacemaker Gastrointestinal: Cholecystectomy, Hemorrhoidectomy Musculoskeletal: Joint Replacement Other Surgical History: gastric bypass, bilat. knee replacement, bone spur, carpal tunnel repair on left hand, - Social History Smoking Status: Never smoker Exposure to second hand smoke: Yes Drug Use: marijuana - Social Determinants of Health Will the patient participate in the screening: Yes Do you worry about a steady place to live?: No Do you have any problems with any of the following?: No known problems In the past 12 months,have you had to go without utilities?: No Transportation Issues: No Has anyone in your support network made you feel unsafe?: No Have you or anyone in your house had to go w/o enough food: No - Nursing Vital Signs Nursing Vital Signs: Initial Vital Signs Temperature 97.9 F 11/11/24 21:47 Pulse Rate 76 11/11/24 21:47 Respiratory Rate 22 11/11/24 21:47 Blood Pressure 144/62 11/11/24 21:47 O2 Sat by Pulse Oximetry 96 11/11/24 21:47 Pain Scale Pain Intensity 0 - Physical Exam General Appearance: no apparent distress Eye Exam: PERRL/EOMI Ears, Nose, Throat Exam: normal ENT inspection Neck Exam: normal inspection, supple, full range of motion Respiratory Exam: normal breath sounds, lungs clear Cardiovascular Exam: regular rate/rhythm, normal heart sounds, edema (2+ pitting edema both lower extremities) Gastrointestinal/Abdomen Exam: soft, No tenderness Back Exam: normal inspection Extremity Exam: normal inspection, normal range of motion, pedal edema, swelling (Mild erythema with mild increased temperature bilateral lower legs), other Neurologic Exam: alert, oriented x 3, cooperative Skin Exam: normal color SpO2 Interpretation: normal SpO2: 96 O2 Delivery: Room Air Ordered Tests: Active Orders 24 hr Category Date Time Status CHEST 1 VIEW (PORTABLE) Stat Exams 11/11/24 22:15 Taken BLOOD CULTURE Stat Lab 11/11/24 22:27 Received CBC W DIFF Stat Lab 11/11/24 22:20 Completed CMP Stat Lab 11/11/24 22:20 Completed Lactic Acid Stat Lab 11/11/24 23:00 Completed MAGNESIUM Stat Lab 11/11/24 22:20 Completed NT PRO BNPII Stat Lab 11/11/24 22:20 Completed TROPONIN Q4H Lab 11/11/24 22:20 Completed TROPONIN Q4H Lab 11/12/24 02:15 Ordered TROPONIN Q4H Lab 11/12/24 06:15 Ordered Medication Summary Discontinued Medications Generic Name Dose Route Start Last Admin Trade Name Freq PRN Reason Stop Dose Admin Cephalexin HCl 500 mg 11/11/24 23:37 11/12/24 00:03 Cephalexin Mh500 Mg Capsule PO 11/11/24 23:38 500 mg STAT ONE Administration Cephalexin HCl Confirm 11/12/24 00:03 Cephalexin Mh500 Mg Capsule Administered 11/12/24 00:04 Dose 500 mg .ROUTE .STK-MED ONE Morphine Sulfate 4 mg 11/11/24 22:04 11/11/24 22:34 Morphine Sulfate 4 Mg/Ml Injection IV 11/11/24 22:05 4 mg STAT ONE Administration Morphine Sulfate Confirm 11/11/24 22:32 Morphine Sulfate 4 Mg/Ml Injection Administered 11/11/24 22:33 Dose 4 mg .ROUTE .STK-MED ONE Ondansetron HCl 4 mg 11/11/24 22:04 11/11/24 22:34 Ondansetron Hcl 4 Mg/2 Ml Vial IV 11/11/24 22:05 4 mg STAT ONE Administration Ondansetron HCl Confirm 11/11/24 22:32 Ondansetron Hcl 4 Mg/2 Ml Vial Administered 11/11/24 22:33 Dose 4 mg .ROUTE .STK-MED ONE Lab/Rad Data: Laboratory Result Diagrams 11/11/24 22:20 11/11/24 22:20 Laboratory Results 11/11/24 11/11/24 11/11/24 Range/Units 23:00 22:20 22:20 WBC (4.23-9.07) x10^3/uL RBC (4.63-6.08) x10^6/uL Hgb (13.7-17.5) g/dL Hct (40.1-51.0) % MCV (79.0-92.2) fL MCH (25.7-32.2) pg MCHC (32.3-36.5) g/dL RDW (11.6-14.4) % Plt Count (163-337) x10^3/uL MPV (9.4-12.4) fL Gran % (34.0-67.9) % Immature Gran % (Auto) (0.001-0.429) % Nucleat RBC Rel Count (0.00-0.2) % Eos # (Auto) (0.04-0.54) x10^3/uL Immature Gran # (Auto) (0.001-0.031) x10^3u/L Absolute Lymphs (auto) (1.32-3.57) x10^3/uL Absolute Monos (auto) (0.30-0.82) x10^3/uL Absolute Nucleated RBC (0.00-0.012) x10^3u/L Lymphocytes % (21.8-53.1) % Monocytes % (5.3-12.2) % Eosinophils % (0.8-7.0) % Basophils % (0.2-1.2) % Absolute Granulocytes (1.78-5.38) x10^3/uL Basophils # (0.01-0.08) x10^3/uL Sodium 138 (135-145) mmol/L Potassium 3.7 (3.5-5.1) mmol/L Chloride 101 (98-107) mmol/L Carbon Dioxide 28 (22-30) mmol/L Anion Gap 13.0 (5-15) MEQ/L BUN 28 H (9-20) mg/dL Creatinine 1.07 (0.66-1.25) mg/dL Estimated GFR 77.0 ML/MIN Glucose 118 H (74-106) mg/dL Lactic Acid 1.6 (0.4-2.0) Calcium 9.4 (8.4-10.2) mg/dL Magnesium 2.3 (1.6-2.3) mg/dL Total Bilirubin 0.40 (0.2-1.3) mg/dL AST 28 (17-59) U/L ALT 23 (0-50) U/L Alkaline Phosphatase 121 (38-126) U/L Troponin I < 0.012 (0.000-0.033) ng/mL NT-Pro-B Natriuret Pep 354 (<300) pg/mL Serum Total Protein 6.5 (6.3-8.2) g/dL Albumin 4.3 (3.5-5.0) g/dL / Range/Units 22:20 WBC 7.3 (4.23-9.07) x10^3/uL RBC 4.55 L (4.63-6.08) x10^6/uL Hgb 13.7 (13.7-17.5) g/dL Hct 41.9 (40.1-51.0) % MCV 92.1 (79.0-92.2) fL MCH 30.1 (25.7-32.2) pg MCHC 32.7 (32.3-36.5) g/dL RDW 13.6 (11.6-14.4) % Plt Count 272 (163-337) x10^3/uL MPV 10.3 (9.4-12.4) fL Gran % 71.5 H (34.0-67.9) % Immature Gran % (Auto) 0.1 (0.001-0.429) % Nucleat RBC Rel Count 0.0 (0.00-0.2) % Eos # (Auto) 0.09 (0.04-0.54) x10^3/uL Immature Gran # (Auto) 0.01 (0.001-0.031) x10^3u/L Absolute Lymphs (auto) 1.19 L (1.32-3.57) x10^3/uL Absolute Monos (auto) 0.72 (0.30-0.82) x10^3/uL Absolute Nucleated RBC 0.00 (0.00-0.012) x10^3u/L Lymphocytes % 16.3 L (21.8-53.1) % Monocytes % 9.9 (5.3-12.2) % Eosinophils % 1.2 (0.8-7.0) % Basophils % 1.0 (0.2-1.2) % Absolute Granulocytes 5.20 (1.78-5.38) x10^3/uL Basophils # 0.07 (0.01-0.08) x10^3/uL Sodium (135-145) mmol/L Potassium (3.5-5.1) mmol/L Chloride (98-107) mmol/L Carbon Dioxide (22-30) mmol/L Anion Gap (5-15) MEQ/L BUN (9-20) mg/dL Creatinine (0.66-1.25) mg/dL Estimated GFR ML/MIN Glucose (74-106) mg/dL Lactic Acid (0.4-2.0) Calcium (8.4-10.2) mg/dL Magnesium (1.6-2.3) mg/dL Total Bilirubin (0.2-1.3) mg/dL AST (17-59) U/L ALT (0-50) U/L Alkaline Phosphatase (38-126) U/L Troponin I (0.000-0.033) ng/mL NT-Pro-B Natriuret Pep (<300) pg/mL Serum Total Protein (6.3-8.2) g/dL Albumin (3.5-5.0) g/dL - Progress Progress: improved Progress Note: 11/12/24 00:16 Differential diagnosis includes but not limited to: Cellulitis/DVT/congestive heart failure/sepsis 64-year-old is evaluated in the ER for bilateral lower extremity swelling and redness with increasing pain. He is given symptomatic treatment for pain, on reevaluation feeling better. Chest x-ray is negative for any acute cardiopulmonary findings interpreted by me, official final read is pending Normal white count, chemistries fairly unremarkable, BNP only in 300s and negative troponins. Normal lactate. I believe patient has bilateral lower extremity cellulitis, started on Keflex and outpatient follow-up recommended. Patient has 2+ pitting edema bilaterally, recommended taking extra dose of diuretic for couple of days and follow-up outpatient. It is highly less likely to have bilateral DVT, do not think patient needs imaging. Discussed signs symptoms of worsening needing return to ER which he seems understanding. Stable for discharge Complexity of problems addressed: Moderate acute Complexity of data reviewed/analyzed: Moderate Risk of complication: Low to moderate Counseled pt/family regarding: lab results, diagnosis, need for follow-up, rad results Medical Desision Making - Diagnostic Testing Diagnostic test were ordered, analyzed, and reviewed by me: Yes Radiological Interpretation: Interpreted by me - Risk of complications The pt has a mod risk of morbidity or mortality based on: Need for prescription drug management - Departure Departure Disposition: Home Clinical Impression: Bilateral lower leg cellulitis, Bilateral leg edema Condition: Stable Critical Care Time: No Referrals: WILDER DALTON [Primary Care Provider, UNKNOWN] - Follow up with PCP 1 day Instructions: Peripheral Edema -- Bilateral, Cellulitis (skin infection) in adults - Discharge instructions Additional Instructions: Keep the legs elevated, use compression stocking, take extra dose of diuretics for next couple of days. Follow-up with primary care for reevaluation. Return to ER for increasing pain, swelling, redness or if develop fever chills etc. Prescriptions: Cephalexin Mh 500 mg [Keflex 500 mg] 500 mg PO TID #21 cap
--- NOTE | 2024-11-12 08:48 | XRAY ---
Indication: CHF. Comparison: None Portable chest inflated with small left mid lung calcified granuloma. No focal infiltrate, consolidation, or large effusion. Heart is not enlarged for AP portable technique with incidental left dual-lead pacemaker and small hiatal hernia. Bony thorax intact with osteopenia, mild degenerative changes, and mild dextroscoliosis. Impression: Nonacute chest with chronic features.
== END 2024-11-12 00:25 | disposition home or self-care (01) ==
LOC: ED 21:43
DX: L03.116 Cellulitis of left lower limb (principal); L03.115 Cellulitis of right lower limb; R60.0 Localized edema; Z79.899 Other long term (current) drug therapy
CPT/HCPCS: 36415; 71045; 80053; 83605; 83735; 83880; 84484; 85025; 87040; 96374; 96375; 99284; J2270; J2405; A9270-GY